=== PATIENT | male | born 1960 | race Two or more races ===

== ENCOUNTER 2018-02-04 09:57 | Outpatient (CLI) | payer OTHER ==
[~2018-02-04 09:57] MED LIST: LIPITOR20 MG PO
== END 2018-02-08 08:54 | disposition home or self-care (01) ==
LOC: SONOGRAMA 09:57 → MAMO-SONO 10:45 → SONOGRAMA 02-08 08:54
DX: M75.102 Unspecified rotator cuff tear or rupture of left shoulder, not specified as traumatic (principal)

== ENCOUNTER → 2018-11-28 | Outpatient (CLI) | payer OTHER | END | disposition home or self-care (01) | LOC: NUCLEAR 11:00 | DX: N13.1 Hydronephrosis with ureteral stricture, not elsewhere classified (principal) | CPT/HCPCS: 78708; A9539; J1940 ==

== ENCOUNTER → 2021-01-06 12:02 | Outpatient (CLI) | payer OTHER | END | disposition home or self-care (01) | LOC: PPH VACUNA 12:02 | DX: Z23 Encounter for immunization (principal) ==

== ENCOUNTER 2021-02-18 10:55 | Outpatient (CLI) | payer OTHER | END 2021-02-18 15:25 | disposition home or self-care (01) | LOC: SONOGRAMA 10:55 | PROVIDERS: ATTEND Urology | DX: N48.6 Induration penis plastica (principal); N13.1 Hydronephrosis with ureteral stricture, not elsewhere classified ==

== ENCOUNTER 2022-08-31 12:56 | Outpatient (CLI) | payer OTHER | END 2022-08-31 13:03 | disposition home or self-care (01) | LOC: EKG 12:56 | PROVIDERS: ATTEND Internal Medicine Cardiovascular Disease | DX: I10 Essential (primary) hypertension (principal) ==

== ENCOUNTER 2022-09-23 10:29 | Outpatient (CLI) | payer OTHER | END 2022-09-23 10:47 | disposition home or self-care (01) | LOC: RAD 10:29 | PROVIDERS: ATTEND Internal Medicine Cardiovascular Disease | DX: M12.9 Arthropathy, unspecified (principal) ==

== ENCOUNTER 2022-11-10 07:43 | Outpatient (CLI) | payer OTHER | END 2022-11-10 07:44 | disposition home or self-care (01) | LOC: NUCLEAR 07:43 | PROVIDERS: ATTEND Podiatrist | DX: R97.20 Elevated prostate specific antigen [PSA] (principal) | CPT/HCPCS: 78306; 78803; A9503 ==

== ENCOUNTER 2022-11-16 08:08 | Outpatient (CLI) | payer OTHER | END 2022-11-16 08:17 | disposition home or self-care (01) | LOC: LAB 08:08 | PROVIDERS: ATTEND Internal Medicine | DX: U07.1 COVID-19 (principal); B34.1 Enterovirus infection, unspecified ==

== ENCOUNTER → 2022-11-16 | Outpatient (CLI) | payer OTHER | END | disposition home or self-care (01) | LOC: NUCLEAR 07:00 | PROVIDERS: ATTEND Urology | DX: I25.10 Atherosclerotic heart disease of native coronary artery without angina pectoris (principal); I65.1 Occlusion and stenosis of basilar artery; R97.20 Elevated prostate specific antigen [PSA] | CPT/HCPCS: 78452; 93017; 93880; A9500 ==

== ENCOUNTER 2023-09-20 08:25 | Outpatient (CLI) | payer OTHER | END 2023-09-20 08:33 | disposition home or self-care (01) | LOC: SONOGRAMA 08:25 | PROVIDERS: ATTEND Internal Medicine Gastroenterology | DX: R10.9 Unspecified abdominal pain (principal) ==

== ENCOUNTER 2025-04-10 10:45 | Outpatient (CLI) | payer OTHER | END 2025-04-10 10:46 | disposition home or self-care (01) | LOC: NUCLEAR 10:45 | PROVIDERS: ATTEND Internal Medicine Cardiovascular Disease | DX: I10 Essential (primary) hypertension (principal) ==